=== PATIENT | male | born 1950 | race African-American/Black ===

== ENCOUNTER 2020-08-16 22:59 | Emergency (ER) | payer BC, OTHER, SELFPAY ==
[2020-08-17] MEDS ORDERED: ACETAMINOPHEN 325 MG TABLET ONE (00:31)
[2020-08-17 00:50] LABS: Urine Blood TRACE (NEG); Urine Glucose NEGATIVE (NEG); Urine Protein 1+ (NEG); Urine pH 5.5 (5.0-7.0)
[2020-08-17] MEDS ORDERED: NA CHLORIDE 0.9% 500 ML ONE (01:06)
[2020-08-17 01:12] LABS: Absolute Lymphocytes (CBC) 0.7 K/uL (0.7-4.9); Basophils % 0.4 % (0-1.3); Hematocrit 41.1 % (39.6-49.0); Lymphocytes % 9.2 % (15.3-44.8); MPV 10.7 fL (7.6-11.3); RBC Red Blood Cell Count 5.05 M/uL (4.33-5.43)
[2020-08-17 01:14] LABS: BUN Blood Urea Nitrogen 24 mg/dL (7-18); Bicarbonate 23 mmol/L (21-32); Glucose Level 124 mg/dL (74-106); Potassium 3.9 mmol/L (3.5-5.1); Sodium Level 138 mmol/L (136-145)
[2020-08-17 01:15] LABS: ALT/SGPT 26 U/L (12-78); AST/SGOT 23 U/L (15-37); Albumin 3.6 g/dL (3.4-5.0); Alkaline Phosphatase 93 U/L (45-117); Bilirubin Total 0.4 mg/dL (0.2-1.0); Lipase 127 U/L (73-393); Protein, Total 8.3 g/dL (6.4-8.2); Troponin (Emerg Dept Use Only) < 0.02 ng/mL (0.0-0.045)
--- NOTE | 2020-08-17 01:57 | ER ---
Nurse's Notes [facility] Name: Dax Zimmer Age: 70 yrs Sex: Male : 1950 Arrival Date: 08/16/2020 Time: 22:59 Bed 23 Private MD: Diagnosis: Dyspnea;Acute upper respiratory infection, unspecified;Malaise and fatigue;SARS-associated coronavirus as the cause of diseases classified elsewhere-covid 19 Presentation: 08/17 00:30 Chief complaint: Patient states: Reports shortness of breath, chills x 3 days; unable lp1 to tolerate eating and drinking; denies fever. Coronavirus screen: Client denies travel out of the [place] in the last 14 days. chills. Ebola Screen: No symptoms or risks identified at this time. Initial Sepsis Screen: Does the patient meet any 2 criteria? No. Patient's initial sepsis screen is negative. Does the patient have a suspected source of infection? No. Patient's initial sepsis screen is negative. Risk Assessment: Do you want to hurt yourself or someone else? Patient reports no desire to harm self or others. Onset of symptoms was August 17, 2020. 00:30 Method Of Arrival: Wheelchair lp1 00:30 Acuity: LEILANI 3 lp1 Historical: - Allergies: 00:33 No Known Allergies; lp1 - Home Meds: 00:33 None [Active]; lp1 - PMHx: 00:33 None; lp1 - PSHx: 00:33 None; lp1 - Immunization history:: Adult Immunizations up to date. - Social history:: Smoking status: Patient reports the use of cigarette tobacco products, denies chronic smoking, but will smoke occasionally. - Family history:: not pertinent. Screenin:00 Abuse screen: Denies threats or abuse. Nutritional screening: No deficits noted. ll2 Tuberculosis screening: No symptoms or risk factors identified. Fall Risk None identified. Assessment: 01:20 General: Appears in no apparent distress. Behavior is calm, cooperative, appropriate ll2 for age. Pain: Denies pain. Neuro: Level of Consciousness is alert, obeys commands, Oriented to person, place, time, situation. Cardiovascular: Patient's skin is warm and dry. Rhythm is regular. Respiratory: Airway is patent Respiratory effort is even, Respiratory pattern is regular, symmetrical. GI: No signs and/or symptoms were reported involving the gastrointestinal system. : No signs and/or symptoms were reported regarding the genitourinary system. EENT: No signs and/or symptoms were reported regarding the EENT system. Derm: Skin is intact, is healthy with good turgor, Skin is pink, warm \T\ dry. Musculoskeletal: Circulation, motion, and sensation intact. Range of motion: intact in all extremities. Vital Signs: 00:30 BP 147 / 80; Pulse 79; Resp 18; Temp 98.3(O); Pulse Ox 100% on R/A; Weight 72.57 kg lp1 (R); Height 5 ft. 10 in. (177.80 cm); 01:00 BP 124 / 79; Pulse 60; Resp 17; Temp 98.4; Pulse Ox 98% on R/A; ll2 02:00 BP 123 / 76; Pulse 55; Resp 15; Pulse Ox 98% on R/A; ll2 00:30 Body Mass Index 22.96 (72.57 kg, 177.80 cm) lp1 ED Course: 08/16 22:59 Patient arrived in ED. cl3 08/17 00:24 Sean Talley MD is Attending Physician. chandan 00:32 Triage completed. lp1 00:32 Arm band placed on. lp1 01:21 XRAY Chest (1 view) In Process Unspecified. EDMS 01:55 Nick Benítez MD is Referral Physician. chandan 01:57 James Kelly MD is Referral Physician. chandan 02:31 Zarina De Leon RN is Primary Nurse. ll2 Administered Medications: 00:33 Drug: Tylenol 650 mg Route: PO; lp1 01:40 Follow up: Response: No adverse reaction ll2 00:53 Drug: NS 0.9% 500 ml Route: IV; Rate: bolus; Site: right antecubital; jb4 02:00 Drug: Decadron 10 mg Route: IM; Site: left deltoid; ll2 02:00 Follow up: Response: Medication administered at discharge. ll2 02:00 Drug: Pepcid 20 mg Route: PO; ll2 07:35 Follow up: Response: Medication administered at discharge. ll2 02:00 Drug: Aspirin Chewable Tablet 324 mg Route: PO; ll2 07:35 Follow up: Response: Medication administered at discharge. 2 02:39 Drug: Zithromax 500 mg Route: PO; 2 Outcome: 01:56 Discharge ordered by . chandan 03:01 Patient left the ED. 2 Signatures: Dispatcher [employer] EDSean Cox MD MD cha Pena, Laura, RN RN lp1 Venu To RN RN jb4 Henrietta Perez mw2 Sandy An 3 Zarina De Leon RN RN ll2
--- NOTE | 2020-08-17 01:57 | EDPHYS ---
Physician Documentation [facility] Name: Dax Zimmer Age: 70 yrs Sex: Male : 1950 Arrival Date: 08/16/2020 Time: 22:59 Bed 23 Private MD: ED Physician Sean Talley HPI: 08/17 00:34 This 70 yrs old Black Male presents to ER via Wheelchair with complaints of Shortness chandan Of Breath. 00:34 The patient has shortness of breath at rest, with light activity. Onset: The chandan symptoms/episode began/occurred 2 day(s) ago. Duration: The symptoms are continuous, and are unchanged since they started. The patient's shortness of breath has no apparent modifying factors. Associated signs and symptoms: Pertinent positives: non-productive cough. Severity of symptoms: At their worst the symptoms were mild in the emergency department the symptoms are unchanged. The patient has not experienced similar symptoms in the past. Historical: - Allergies: 00:33 No Known Allergies; lp1 - Home Meds: 00:33 None [Active]; lp1 - PMHx: 00:33 None; lp1 - PSHx: 00:33 None; lp1 - Immunization history:: Adult Immunizations up to date. - Social history:: Smoking status: Patient reports the use of cigarette tobacco products, denies chronic smoking, but will smoke occasionally. - Family history:: not pertinent. ROS: 00:34 Constitutional: Negative for fever, chills, and weight loss, Eyes: Negative for injury, chandan pain, redness, and discharge, ENT: Negative for injury, pain, and discharge, Neck: Negative for injury, pain, and swelling, Cardiovascular: Negative for chest pain, palpitations, and edema, Back: Negative for injury and pain, : Negative for injury, bleeding, discharge, and swelling, MS/Extremity: Negative for injury and deformity, Skin: Negative for injury, rash, and discoloration, Neuro: Negative for headache, weakness, numbness, tingling, and seizure, Psych: Negative for depression, anxiety, suicide ideation, homicidal ideation, and hallucinations, Allergy/Immunology: Negative for hives, rash, and allergies, Endocrine: Negative for neck swelling, polydipsia, polyuria, polyphagia, and marked weight changes, Hematologic/Lymphatic: Negative for swollen nodes, abnormal bleeding, and unusual bruising. 00:34 Respiratory: Positive for cough. 00:34 Abdomen/GI: Positive for abdominal pain, of the epigastric area, right upper quadrant and left upper quadrant. Exam: 00:34 Constitutional: This is a well developed, well nourished patient who is awake, alert, chandan and in no acute distress. Head/Face: Normocephalic, atraumatic. Eyes: Pupils equal round and reactive to light, extra-ocular motions intact. Lids and lashes normal. Conjunctiva and sclera are non-icteric and not injected. Cornea within normal limits. Periorbital areas with no swelling, redness, or edema. ENT: Nares patent. No nasal discharge, no septal abnormalities noted. Tympanic membranes are normal and external auditory canals are clear. Oropharynx with no redness, swelling, or masses, exudates, or evidence of obstruction, uvula midline. Mucous membranes moist. Neck: Trachea midline, no thyromegaly or masses palpated, and no cervical lymphadenopathy. Supple, full range of motion without nuchal rigidity, or vertebral point tenderness. No Meningismus. Chest/axilla: Normal chest wall appearance and motion. Nontender with no deformity. No lesions are appreciated. Cardiovascular: Regular rate and rhythm with a normal S1 and S2. No gallops, murmurs, or rubs. Normal PMI, no JVD. No pulse deficits. Respiratory: Lungs have equal breath sounds bilaterally, clear to auscultation and percussion. No rales, rhonchi or wheezes noted. No increased work of breathing, no retractions or nasal flaring. Abdomen/GI: Soft, non-tender, with normal bowel sounds. No distension or tympany. No guarding or rebound. No evidence of tenderness throughout. Back: No spinal tenderness. No costovertebral tenderness. Full range of motion. Male : Normal genitalia with no discharge or lesions. Skin: Warm, dry with normal turgor. Normal color with no rashes, no lesions, and no evidence of cellulitis. MS/ Extremity: Pulses equal, no cyanosis. Neurovascular intact. Full, normal range of motion. Neuro: Awake and alert, GCS 15, oriented to person, place, time, and situation. Cranial nerves II-XII grossly intact. Motor strength 5/5 in all extremities. Sensory grossly intact. Cerebellar exam normal. Normal gait. Psych: Awake, alert, with orientation to person, place and time. Behavior, mood, and affect are within normal limits. 01:04 ECG was reviewed by the Attending Physician. chandan 01:54 Cardiovascular: JVD: is not appreciated. chandan 01:54 Respiratory: the patient does not display signs of respiratory distress, Respirations: normal, no acute changes, Breath sounds: are clear throughout, no bronchial sounds, no decreased breath sounds, no rales, no stridor, no wheezing, rhonchi, that are mild, are scattered, Respiratory rate: 18 01:54 Musculoskeletal/extremity: Extremities: all appear grossly normal, with no appreciated pain with palpation, no edema. Vital Signs: 00:30 BP 147 / 80; Pulse 79; Resp 18; Temp 98.3(O); Pulse Ox 100% on R/A; Weight 72.57 kg lp1 (R); Height 5 ft. 10 in. (177.80 cm); 01:00 BP 124 / 79; Pulse 60; Resp 17; Temp 98.4; Pulse Ox 98% on R/A; ll2 02:00 BP 123 / 76; Pulse 55; Resp 15; Pulse Ox 98% on R/A; ll2 00:30 Body Mass Index 22.96 (72.57 kg, 177.80 cm) lp1 MDM: 00:25 Patient medically screened. chandan 00:35 Differential diagnosis: asthma, Bronchitis pneumonia, pulmonary edema, reactive airway chandan disease. Antibiotic administration: Not indicated. The patient's [place] Deep Vein Thrombosis Score was calculated as follows: Total Score: 0-2 Pts- Low Risk. The patient's pulmonary embolism risk score was calculated as follows: No Risks (0 Pts). Immunization status: Pneumococcal vaccine: Influenza vaccine: Data reviewed: vital signs, nurses notes, lab test result(s), EKG, radiologic studies, plain films. Data interpreted: site monitor: rate is 79 beats/min, rhythm is regular, Pulse oximetry: on room air. Test interpretation: by ED physician or midlevel provider: ECG, plain radiologic studies. Counseling: I had a detailed discussion with the patient and/or guardian regarding: the historical points, exam findings, and any diagnostic results supporting the discharge/admit diagnosis, lab results, radiology results. 08/17 00:33 Order name: CBC with Diff; Complete Time: 01:20 chandan 08/17 00:33 Order name: Comprehensive Metabolic Panel; Complete Time: 01:20 chandan 08/17 00:33 Order name: Lipase; Complete Time: 01:20 chandan 08/17 00:06 Order name: XRAY Chest (1 view) lp1 08/17 00:34 Order name: Troponin (emerg Dept Use Only); Complete Time: 01:20 chandan 08/17 00:44 Order name: Urine Dipstick--Ancillary (enter results); Complete Time: 01:08 2 08/17 02:40 Order name: COVID-19/FLU A+B EDMS 08/17 00:06 Order name: Urine Dipstick-Ancillary (obtain specimen); Complete Time: 01:48 lp1 08/17 00:34 Order name: EKG; Complete Time: 00:34 chandan 08/17 00:34 Order name: EKG - Nurse/Tech; Complete Time: 01:49 [facility] EC:04 Rate is 62 beats/min. Rhythm is regular. QRS Gering is Normal. IN interval is normal. QRS chandan interval is normal. QT interval is normal. No Q waves. T waves are Normal. No ST changes noted. Clinical impression: Normal ECG and No evidence of ischemia. Interpreted by me. Reviewed by me. Administered Medications: 00:33 Drug: Tylenol 650 mg Route: PO; lp1 01:40 Follow up: Response: No adverse reaction ll2 00:53 Drug: NS 0.9% 500 ml Route: IV; Rate: bolus; Site: right antecubital; jb4 02:00 Drug: Decadron 10 mg Route: IM; Site: left deltoid; ll2 02:00 Follow up: Response: Medication administered at discharge. ll2 02:00 Drug: Pepcid 20 mg Route: PO; ll2 07:35 Follow up: Response: Medication administered at discharge. ll2 02:00 Drug: Aspirin Chewable Tablet 324 mg Route: PO; ll2 07:35 Follow up: Response: Medication administered at discharge. ll2 02:39 Drug: Zithromax 500 mg Route: PO; ll2 Disposition: 08/17/20 01:56 Discharged to Home. Impression: Dyspnea, Acute upper respiratory infection, unspecified, Malaise and fatigue, SARS-associated coronavirus as the cause of diseases classified elsewhere - covid 19. - Condition is Stable. - Discharge Instructions: Shortness of Breath, Upper Respiratory Infection, Adult, Weakness, Cool Mist Vaporizer, Shortness of Breath, Utav-sn-Whgm, Upper Respiratory Infection, Adult, Zzud-bx-Opph, Cough, Adult, Bcih-vh-Eqhz, Weakness, Iafr-zh-Qpfk, Aspirin and Your Heart, Cough, Adult, COVID-19. - Prescriptions for Pepcid 20 mg Oral Tablet - take 1 tablet by ORAL route every 12 hours for 10 days; 20 tablet. Albuterol Sulfate 90 mcg/actuation - inhale 1-2 puff by INHALATION route every 4-6 hours; 1 Inhaler. dexamethasone 2 mg Oral tablet - take 1 tablet by ORAL route 3 times per day; 15 tablet. Zithromax 500 mg Oral Tablet - take 1 tablet by ORAL route once daily for 4 days; 4 tablet. - Medication Reconciliation Form, Thank You Letter, Antibiotic Education, Prescription Opioid Use form. - Follow up: Private Physician; When: 2 - 3 days; Reason: Recheck today's complaints, Continuance of care, Re-evaluation by your physician. Follow up: Nick Benítez MD; When: 2 - 3 days; Reason: Recheck today's complaints, Continuance of care, Re-evaluation by your physician. Follow up: James Kelly MD; When: 2 - 3 days; Reason: Recheck today's complaints, Re-evaluation by your physician. - Problem is new. - Symptoms have improved. Signatures: Dispatcher [employer] [facility] Sean Talley MD MD cha Pena, Laura, RN RN lp1 Venu To RN RN jb4 Henrietta Perez mw2 Zarina De Leon, DANIELLE RN ll2 Corrections: (The following items were deleted from the chart) 01:34 00:15 Influenza Screen (A \T\ B)+[id number].LAB.BRZ ordered. [facility] EDWA 01:34 00:15 Influenza Screen (A ordered. [facility] EDWA 01:57 01:56 08/17/2020 01:56 Discharged to Home. Impression: Dyspnea; Acute upper respiratory chandan infection, unspecified; Malaise and fatigue. Condition is Stable. Forms are Medication Reconciliation Form, Thank You Letter, Antibiotic Education, Prescription Opioid Use. Follow up: Private Physician; When: 2 - 3 days; Reason: Recheck today's complaints, Continuance of care, Re-evaluation by your physician. Follow up: Nick Benítez; When: 2 - 3 days; Reason: Recheck today's complaints, Continuance of care, Re-evaluation by your physician. Problem is new. Symptoms have improved. chandan 02:44 01:57 08/17/2020 01:56 Discharged to Home. Impression: Dyspnea; Acute upper respiratory chandan infection, unspecified; Malaise and fatigue. Condition is Stable. Discharge Instructions: Shortness of Breath, Upper Respiratory Infection, Adult, Weakness, Cool Mist Vaporizer, Shortness of Breath, Dtsg-gg-Rtgh, Upper Respiratory Infection, Adult, Gkce-xr-Zdzq, Cough, Adult, Mtej-ky-Xqjm, Weakness, Texx-zm-Hlza, Cough, Adult. Prescriptions for Pepcid 20 mg Oral Tablet - take 1 tablet by ORAL route every 12 hours for 10 days; 20 tablet, Zithromax Z-Leroy 250 mg Oral Tablet - take 1 tablet by ORAL route as directed for 5 days Day 1 - take two (2) tablets one time. Day 2, 3, 4 , 5 take one (1) tablet once daily.; 6 tablet, Albuterol Sulfate 90 mcg/actuation - inhale 1-2 puff by INHALATION route every 4-6 hours; 1 Inhaler. and Forms are Medication Reconciliation Form, Thank You Letter, Antibiotic Education, Prescription Opioid Use. Follow up: Private Physician; When: 2 - 3 days; Reason: Recheck today's complaints, Continuance of care, Re-evaluation by your physician. Follow up: Nick Benítez; When: 2 - 3 days; Reason: Recheck today's complaints, Continuance of care, Re-evaluation by your physician. Follow up: James Kelly; When: 2 - 3 days; Reason: Recheck today's complaints, Re-evaluation by your physician. Problem is new. Symptoms have improved. chandan 03:01 02:44 08/17/2020 01:56 Discharged to Home. Impression: Dyspnea; Acute upper respiratory mw2 infection, unspecified; Malaise and fatigue; SARS-associated coronavirus as the cause of diseases classified elsewhere - covid 19. Condition is Stable. Discharge Instructions: Shortness of Breath, Upper Respiratory Infection, Adult, Weakness, Cool Mist Vaporizer, Shortness of Breath, Eair-ln-Tjeo, Upper Respiratory Infection, Adult, Oayt-pv-Oznh, Cough, Adult, Eifh-xe-Asgz, Weakness, Bohr-jt-Swpg, Cough, Adult, COVID-19. Prescriptions for Pepcid 20 mg Oral Tablet - take 1 tablet by ORAL route every 12 hours for 10 days; 20 tablet, Albuterol Sulfate 90 mcg/actuation - inhale 1-2 puff by INHALATION route every 4-6 hours; 1 Inhaler, dexamethasone 2 mg Oral tablet - take 1 tablet by ORAL route 3 times per day; 15 tablet, Zithromax 500 mg Oral Tablet - take 1 tablet by ORAL route once daily for 4 days; 4 tablet. and Forms are Medication Reconciliation Form, Thank You Letter, Antibiotic Education, Prescription Opioid Use. Follow up: Private Physician; When: 2 - 3 days; Reason: Recheck today's complaints, Continuance of care, Re-evaluation by your physician. Follow up: Nick Benítez; When: 2 - 3 days; Reason: Recheck today's complaints, Continuance of care, Re-evaluation by your physician. Follow up: James Kelly; When: 2 - 3 days; Reason: Recheck today's complaints, Re-evaluation by your physician. Problem is new. Symptoms have improved. chandan
[2020-08-17 02:40] LABS: SARS-COV-2 RT PCR POSITIVE (NEGATIVE)
[2020-08-17] MEDS ORDERED: AZITHROMYCIN 250 MG TAB ONE (02:49)
[2020-08-17 03:06] VITALS: BP 147/80; TEMP 98.3; O2SAT 100
[2020-08-17] MEDS ORDERED: FAMOTIDINE 20 MG TAB ONE (03:10)
[2020-08-17] MEDS ORDERED: ASPIRIN 81 MG CHEWABLE TABLET ONE (03:10)
[2020-08-17] MEDS ORDERED: dexAMETHasone 10 MG/ML VIAL ONE (03:10)
--- NOTE | 2020-08-17 08:44 | RAD REPORT ---
EXAM DESCRIPTION: Jennie Single View08/17/2020 1:21 am CLINICAL HISTORY: Shortness of breath COMPARISON: 2013 FINDINGS: Bilateral calcified lung granulomas Heart is borderline enlarged. Lungs mildly hyperaerated IMPRESSION: No acute abnormalities displayed
--- NOTE | 2020-08-18 08:20 | EKG ---
Test Date: 2020-08-17 Test Time: 00:59:45 Elevated Motorman: MARIELA MEASUREMENT RESULTS: Intervals: Rate: 62 VT: 176 QRSD: 104 QT: 396 QTc: 401 Barton: P: 67 VT: 176 QRS: 30 T: 59 INTERPRETIVE STATEMENTS: Sinus rhythm with premature atrial complexes Otherwise normal ECG Compared to ECG 04/05/2014 07:45:56 Atrial premature complex(es) now present Electronically Signed On 08-18-20 08:17:52 JIG FITTER by James Kelly
== END 2020-08-17 03:01 | disposition home or self-care (01) ==
LOC: ER 22:59
DX: U07.1 COVID-19 (principal); J98.8 Other specified respiratory disorders; F17.210 Nicotine dependence, cigarettes, uncomplicated
CPT/HCPCS: 93005; 85025; 36415; 81003; 84484; 83690; 80053; 0240U; 71045; 96372; 99283; J1100; J7040

== ENCOUNTER 2024-03-26 19:52 | Inpatient (IN) | payer OTHER ==
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
[2024-03-26] MEDS ORDERED: ONDANSETRON 4 MG/2 ML VIAL ONE (20:24)
[2024-03-26] MEDS ORDERED: MORPHINE 4 MG/ML SYR ONE (20:25)
[2024-03-26 20:35] LABS: Absolute Basophils 0.1 K/uL (0-0.5); Absolute Eosinophils 0.1 K/uL (0-0.5); Absolute Monocytes 0.8 K/uL (0.1-1.3); Absolute Neutrophil 6.5 K/uL (1.8-8.0); Basophils % 0.7 % (0-1.3); Eosinophils % 1.6 % (0-4.4); Hemoglobin 13.6 g/dL (13.6-17.9); Lymphocytes % 20.6 % (15.3-44.8); MCHC 33.9 g/dL (32.0-36.0); MCV 82.6 fL (80-100); MPV 8.5 fL (7.6-11.3); Monocytes % 8.5 % (3.3-12.3); Neutrophils % 68.6 % (41.7-73.7); Nucleated Red Blood Cells % 0.1 % (0-0); Platelets 258 thou/uL (152-406); RBC Red Blood Cell Count 4.84 M/uL (4.33-5.43); Red Cell Distribution Width 15.2 % (12.1-15.2)
[2024-03-26 20:42] LABS: PT Prothrombin Time 13.4 SECONDS (9.4-12.5); PTT, Activated Partial Thromb 27.4 SECONDS (24.3-36.9); Protime INR 1.2
[2024-03-26] MEDS ORDERED: dilTIAZem HCL 25 MG/5 ML VIAL IV ONE ×2 (20:45→23:01)
[2024-03-26 20:56] LABS: Anion Gap 11.9 mEq/L (5.0-15.0); Potassium 3.9 mEq/L (3.5-5.1)
[2024-03-26 21:18] LABS: Troponin High Sensitivity 2655.1 pg/mL (<58.9)
--- NOTE | 2024-03-26 21:53 | RAD REPORT ---
EXAM DESCRIPTION: Jennie Single View03/26/2024 8:37 pm CLINICAL HISTORY: Chest pain COMPARISON: 2020 FINDINGS: 5 centimeter opacity right upper lobe Left lung appears clear Heart is mildly to moderately enlarged IMPRESSION: Right upper lobe opacity may represent pneumonia or mass
[2024-03-26] MEDS ORDERED: ASPIRIN 81 MG CHEWABLE TABLET ONE ×2 (22:07→22:24)
[2024-03-26] MEDS ORDERED: HEPARIN/D5W 25,000 UNIT/500 ML BAG IV ONE (22:25)
[2024-03-26] MEDS ORDERED: NA CHLORIDE 0.9% 100 ML ONE (23:01)
[2024-03-27] MEDS ORDERED: NA CHLORIDE 0.9% 1,000 ML ONE (00:54)
--- NOTE | 2024-03-27 03:07 | EDPHYS ---
Physician Documentation [facility] Name: Dax Zimmer Age: 73 yrs Sex: Male : 1950 Arrival Date: 03/26/2024 Time: 19:52 Bed 3 Private MD: ED Physician Moiz Traylor HPI: 03/26 20:10 This 73 yrs old Black Male presents to ER via Wheelchair with complaints of Chest Pain. ec2 20:10 Patient arrives today for evaluation with several days of left-sided chest pain. Pain ec2 is nonexertional. No specific alleviating or exacerbating factors. Denies any shortness of breath. Patient reports no leg swelling. No history of cardiac disease, ACS, not on blood thinners.. Historical: - Allergies: 20:08 No Known Allergies; cm10 - PMHx: 20:08 None; cm10 - Immunization history:: Adult Immunizations up to date. - Infectious Disease History:: Denies. - Social history:: Smoking status: unknown. ROS: 20:10 Constitutional: as per hpi ec2 Exam: 20:10 Constitutional: GEN: NAD Head: atraumatic Eyes: EOMI Ears: External ears are ec2 normal. CV: regular rate LUNGS: no respiratory distress ABD: non-distended SKIN: no evidence of rashes MSK: no evidence of trauma Vital Signs: 20:06 BP 176 / 90; Pulse 75; Resp 19; Temp 97.1(IR); Pulse Ox 99% ; Weight 68.04 kg; Height 5 cm10 ft. 10 in. ; Pain 5/10; 20:34 BP 178 / 86; Pulse 98; Resp 18; Temp 97.1; Pulse Ox 97% ; Pain 6/10; bm8 21:36 BP 145 / 80; Pulse 95; Resp 22; Temp 97.1; Pulse Ox 95% ; Pain 0/10; bm8 22:39 Weight 70 kg (M); bm8 23:12 BP 114 / 78; Pulse 113; ec2 23:14 BP 114 / 78; Pulse 70; Resp 16; Temp 97.1; Pulse Ox 95% ; Pain 0/10; bm8 03/27 00:03 BP 115 / 86; Pulse 69; Resp 18; Temp 97.1; Pulse Ox 98% on R/A; Pain 0/10; bm8 01:07 BP 128 / 87; Pulse 66; Resp 17; Temp 97.2; Pulse Ox 95% ; Pain 0/10; bm8 01:57 BP 100 / 7; Pulse 45; Resp 16; Temp 97.1; Pulse Ox 96% ; Pain 0/10; bm8 02:02 BP 120 / 68; Pulse 59; ec2 04:10 BP 133 / 75; Pulse 62; Resp 15; Temp 97.1; Pulse Ox 95% on R/A; Pain 0/10; bm8 03/26 20:06 Body Mass Index 21.52 (70.00 kg, 177.8 cm) cm10 03/26 20:06 Pain Scale: Adult cm10 20:34 Pain Scale: Adult bm8 21:36 Pain Scale: Adult bm8 23:14 Pain Scale: Adult bm8 03/27 00:03 Pain Scale: Adult bm8 01:07 Pain Scale: Adult bm8 01:57 Pain Scale: Adult bm8 04:10 Pain Scale: Adult bm8 [place] Coma Score: 03/26 20:34 Eye Response: spontaneous(4). Motor Response: obeys commands(6). Verbal Response: bm8 oriented(5). Total: 15. 21:36 Eye Response: spontaneous(4). Motor Response: obeys commands(6). Verbal Response: bm8 oriented(5). Total: 15. 23:14 Eye Response: spontaneous(4). Motor Response: obeys commands(6). Verbal Response: bm8 oriented(5). Total: 15. 03/27 00:03 Eye Response: spontaneous(4). Motor Response: obeys commands(6). Verbal Response: bm8 oriented(5). Total: 15. 01:07 Eye Response: spontaneous(4). Motor Response: obeys commands(6). Verbal Response: bm8 oriented(5). Total: 15. 01:57 Eye Response: spontaneous(4). Motor Response: obeys commands(6). Verbal Response: bm8 oriented(5). Total: 15. 04:10 Eye Response: spontaneous(4). Motor Response: obeys commands(6). Verbal Response: bm8 oriented(5). Total: 15. MDM: 03/26 20:05 Patient medically screened. ec2 20:10 Data reviewed: vital signs. ED course: Arrives today for evaluation of chest pain. ec2 Examination remarkable for well-appearing nontoxic dividual's otherwise in no acute distress with a reassuring examination. I obtained an EKG independently reviewed and interpreted by me, shows atrial flutter, rate of 105, no acute ST segment elevations, intervals are nonconcerning. Will obtain lab work, chest x-ray and treat the patient's pain with morphine. Differential includes arrhythmia, ACS, electrolyte disturbances, anemia.. 22:06 ED course: Metabolic profile is reassuring, slight renal dysfunction noted. INR 1.2. ec2 Troponin elevated at 2600. Will give the patient full dose aspirin, start the patient on heparin. Chest x-ray shows possible mass , will obtain dedicated CT chest . 22:45 ED course: Patient with improvement in tachycardia after initial bolus of diltiazem, ec2 patient with recurrence of RVR with rates in the 1 30-1 40, will bolus at 25 mg diltiazem and started on diltiazem drip.. 03/27 00:01 ED course: Repeat EKG independently reviewed and interpreted by me, shows atrial ec2 flutter, rate of 71, conduction block of 41. No acute ST segment elevations, intervals are nonactionable. . 00:17 ED course: CT of the chest shows a spiculated mass on the right lung apex concerning ec2 for malignancy. I updated the patient regarding this finding. Also shows lymphadenopathy. Also concern for splenic infarct. Will obtain dedicated CT abdomen pelvis imaging. . 01:56 ED course: Patient noted to be bradycardic, subsequently stopped the diltiazem drip, ec2 repeat EKG obtained, independently reviewed and interpreted by me, shows normal sinus rhythm, rate of 35, no acute ST segment elevations, nonconcerning intervals, patient with stable blood pressures at this time. Will continue to monitor and discontinue the diltiazem at this time. Pending CT angio of the abdomen and pelvis . 03:05 ED course: I discussed case with Dr. GAMAL Penn, surgery who agrees to help consult and ec2 manage the patient. I discussed case with hospitalist will admit primarily. Patient admitting diagnosis of NSTEMI, atrial flutter which is since resolved, on a heparin GTT. Patient and family updated on the plan of care.. 03/26 20:10 Order name: Basic Metabolic Panel; Complete Time: 22:04 2 03/26 20:10 Order name: CBC with Diff; Complete Time: 22:04 2 03/26 20:10 Order name: PT-INR; Complete Time: 22:04 2 03/26 20:10 Order name: Troponin HS; Complete Time: 22:04 2 03/26 20:10 Order name: Ptt, Activated; Complete Time: 22:04 2 03/27 03:30 Order name: PT-INR ec2 03/27 03:30 Order name: Ptt, Activated ec2 03/27 03:43 Order name: Comprehensive Metabolic Panel [facility] 03/27 03:43 Order name: Magnesium [facility] 03/27 03:43 Order name: NT PRO-BNP [facility] 03/27 03:43 Order name: Troponin High Sensitivity [facility] 03/27 03:43 Order name: Lipid Profile [facility] 03/27 03:43 Order name: Lipid Profile [facility] 03/27 03:44 Order name: Magnesium [facility] 03/27 03:44 Order name: Thyroid Stimulating Hormone [facility] 03/26 20:10 Order name: XRAY Chest (1 view); Complete Time: 22:04 2 03/26 22:06 Order name: CT Chest W/ Con 2 03/27 00:24 Order name: CT Abdomen - Angio [facility] 03/27 00:24 Order name: CT Pelvis Angio 2 03/27 03:43 Order name: Echo with Doppler [facility] 03/26 20:10 Order name: EKG; Complete Time: 20:10 2 03/27 03:43 Order name: CONS Physician Consult [facility] 03/27 03:43 Order name: CONS Physician Consult [facility] 03/26 20:10 Order name: Cardiac monitoring; Complete Time: 20:22 2 03/26 20:10 Order name: EKG - Nurse/Tech; Complete Time: 20:11 2 03/26 20:10 Order name: IV Saline Lock; Complete Time: 20:22 2 03/26 20:10 Order name: Labs collected and sent; Complete Time: 20:22 2 03/26 20:10 Order name: O2 Per Protocol; Complete Time: 20:22 2 03/26 20:10 Order name: O2 Sat Monitoring; Complete Time: 20:22 ec2 03/26 23:53 Order name: Ashleyc. Order: repeat ekg; Complete Time: 00:36 ec2 03/26 23:53 Order name: EKG - Nurse/Tech; Complete Time: 00:36 ec2 Administered Medications: 03/26 20:34 Drug: morphine IVP or IV 4 mg IVP once over 4 mins Route: IVP; Infused Over: 4 mins; bm8 Site: left forearm; 21:38 Follow up: Response: No adverse reaction bm8 20:34 Drug: Ondansetron IVP 4 mg IVP once; over 2 minutes Route: IVP; Site: left forearm; bm8 21:38 Follow up: Response: No adverse reaction bm8 20:47 Drug: Diltiazem IVP 10 mg IVP once; Over 2 minutes Route: IVP; Site: left forearm; bm8 21:38 Follow up: Response: No adverse reaction bm8 22:25 Drug: Aspirin PO Chewable Tablet 324 mg PO once; 81 mg tablets x 4 Route: PO; jb4 23:55 Follow up: Response: No adverse reaction bm8 22:58 Drug: Heparin ([place] Drip) 12 units/kg/[place] - ([place] [address] units, D5W IV 500 ml) IV at bm8 calculated rate Per protocol; Max initial rate 1000 units/hr {Co-Signature: jbElla (Venu To RN).} Route: IV; Rate: calculated rate; Site: left forearm; 03/27 04:12 Follow up: Response: No adverse reaction; IV Status: Infusion continued upon admission bm8 04:23 Follow up: ptt 35.5 medication increased 100 units /hr per heparin protocol 8 03/26 23:11 Drug: Diltiazem IV 5 mg/hr IV at calculated rate See Administration Instructions; bm8 (standard dilution 125 mg diltiazem mixed in 125 mL NS; final concentration 1mg/mL). Recommended max rate 15 mg/hr; Titrate 5 mg/hr as often as every 15 minutes to acheive goal (see titration policy); Goal parameter HR less than 100 bpm Route: IV; Rate: calculated rate; Site: right forearm; 23:30 Follow up: titrated med up to 7.5mg, HR goal not reached bm8 23:46 Follow up: medication titrated up to 10 mg/hr, HR goal not reached bm8 23:52 Follow up: HR 140. tittated medication up to 12.5mg/hr. goal not reached bm8 03/27 02:00 Follow up: per MD orders diltiazem stopped. pt converted to sinus aydin bm8 02:01 Follow up: Response: Cardiac rhythm changed; IV Status: Order to discontinue infusion; bm8 IV Intake: 50ml 03/26 23:11 Drug: Diltiazem IVP 25 mg IVP once; Over 2 minutes Route: IVP; Site: right forearm; bm8 03/27 01:06 Follow up: Response: No adverse reaction bm8 01:06 Drug: NS 0.9% IV 1000 ml IV at 1 bolus Per protocol; 1000 mL bolus Route: IV; Rate: 1 bm8 bolus; Site: right forearm; 02:00 Follow up: IV Status: Completed infusion; IV Intake: 1000ml bm8 02:00 Follow up: Response: No adverse reaction bm8 Disposition: 03/26 22:36 Critical Care:. ec2 Disposition Summary: 03/27/24 03:06 Hospitalization Ordered Notes: Hospitalization Status: Inpatient Admission ec2 Provider: Maliha Mckeon ec2 Condition: Stable ec2 Problem: new ec2 Symptoms: have improved ec2 Bed/Room Type: Standard ec2 Location: Intensive Care Unit(03/27/24 04:00) Room Assignment: 4-(03/27/24 04:00) Diagnosis - Unspecified atrial flutter ec2 - [place] Infarct ec2 Forms: - Medication Reconciliation Form ec2 - SBAR form ec2 - Leadership Thank You Letter ec2 Critical care time excluding procedures: 03/27 03:05 Critical care time: Bedside Care: 70 minutes, Consultation: 15 minutes. Total time: 85 ec2 minutes Signatures: Dispatcher [employer] EDKatlin Mantilla RN RN kl Bryson, James RN RN jb4 Rosenda Connelly RN RN cm10 Moiz Traylor MD MD ec2 Bao Kraus RN RN bm8 Venu To RN jb4 Corrections: (The following items were deleted from the chart) 00:24 00:24 Abdomen Angio+CT.RAD.BRZ ordered. EDAR EDMS 00:24 00:24 Pelvis Angio+CT.RAD.BRZ ordered. EDAR EDMS 00:26 09/09 22:36 Critical care time: Bedside Care: 30 minutes, Consultation: 5 minutes. ec2 Total time: 35 minutes ec2 03/27 00:27 00:07 Abdomen Pelvis Wo Con+CT.RAD.BRZ ordered. EDMS EDMS 02:03 02:02 BP 100 / 76; Pulse 59bpm; ec2 ec2 03:06 00:26 Critical care time: Bedside Care: 70 minutes, Consultation: 5 minutes. Total ec2 time: 75 minutes ec2 04:00 03:06 Telemetry/MedSurg (Inpatient) ec2 kl 04:00 03:06 ec2 kl
--- NOTE | 2024-03-27 03:07 | ER ---
Nurse's Notes [facility] Name: Dax Zimmer Age: 73 yrs Sex: Male : 1950 Arrival Date: 03/26/2024 Time: 19:52 Bed 3 Private MD: Diagnosis: Unspecified atrial flutter;Splenic Infarct Presentation: 03/26 20:06 Chief complaint: Patient states: Chest pain to the center of his chest onset a few days cm10 ago. Chest pain is worse when laying flat. Coronavirus screen: Client denies travel out of the [place] in the last 14 days. Ebola Screen: Patient denies travel to an Ebola-affected area in the 21 days before illness onset. No symptoms or risks identified at this time. Initial Sepsis Screen: Does the patient meet any 2 criteria? No. Patient's initial sepsis screen is negative. Does the patient have a suspected source of infection? No. Patient's initial sepsis screen is negative. Risk Assessment: Do you want to hurt yourself or someone else? Patient reports no desire to harm self or others. Onset of symptoms was March 26, 2024. 20:06 Method Of Arrival: Wheelchair cm10 20:06 Acuity: LEILANI 2 cm10 Historical: - Allergies: 20:08 No Known Allergies; cm10 - PMHx: 20:08 None; cm10 - Immunization history:: Adult Immunizations up to date. - Infectious Disease History:: Denies. - Social history:: Smoking status: unknown. Screenin:34 [facility] ED Fall Risk Assessment (Adult) History of falling in the last 3 months, bm8 including since admission No falls in past 3 months (0 pts) Confusion or Disorientation No (0 pts) Intoxicated or Sedated No (0 pts) Impaired Gait No (0 pts) Mobility Assist Device Used No (0 pt) Altered Elimination No (0 pt) Score/Fall Risk Level 0 - 2 = Low Risk Oriented to surroundings, Maintained a safe environment, Educated pt \T\ family on fall prevention, incl call for assistance when getting out of bed, Assessed \T\ reinforced patient's understanding of fall precautions, Hourly rounding (assess needs \T\ fall precautionary measures) done, Used ambulatory aids as needed (educated on \T\ assisted with), Used gait belt as appropriate. Abuse screen: Denies threats or abuse. Nutritional screening: No deficits noted. Tuberculosis screening: No symptoms or risk factors identified. Assessment: 20:34 Reassessment: Patient appears in no apparent distress at this time. Patient and/or bm8 family updated on plan of care and expected duration. Pain level reassessed. Patient is alert, oriented x 3, equal unlabored respirations, skin warm/dry/pink. General: Appears in no apparent distress. uncomfortable, Behavior is calm, cooperative, appropriate for age. Pain: Complains of pain in chest Pain does not radiate. Pain currently is 6 out of 10 on a pain scale. Quality of pain is described as aching, crampy, pressure, Pain began 1 day ago. Is continuous. Neuro: No deficits noted. Level of Consciousness is awake, alert, obeys commands, Oriented to person, place, time, situation, Appropriate for age. Cardiovascular: Reports chest pain, lightheadedness, Heart tones S1 S2 present Capillary refill < 3 seconds Patient's skin is warm and dry. Rhythm is atrial flutter 3:1. Respiratory: Airway is patent Respiratory effort is even, unlabored, Respiratory pattern is regular, symmetrical, Breath sounds are clear bilaterally. GI: No signs and/or symptoms were reported involving the gastrointestinal system. : No signs and/or symptoms were reported regarding the genitourinary system. EENT: No signs and/or symptoms were reported regarding the EENT system. Derm: No signs and/or symptoms reported regarding the dermatologic system. Musculoskeletal: No signs and/or symptoms reported regarding the musculoskeletal system. 21:36 Reassessment: Patient appears in no apparent distress at this time. Patient and/or bm8 family updated on plan of care and expected duration. Pain level reassessed. Patient is alert, oriented x 3, equal unlabored respirations, skin warm/dry/pink. Patient denies pain at this time. Patient states feeling better. Patient states symptoms have improved. Cardiovascular: Denies chest pain, lightheadedness, shortness of breath, Heart tones S1 S2 present Capillary refill < 3 seconds Patient's skin is warm and dry. Rhythm is atrial flutter 3:1. 23:14 Reassessment: Patient appears in no apparent distress at this time. Patient and/or bm8 family updated on plan of care and expected duration. Pain level reassessed. Patient is alert, oriented x 3, equal unlabored respirations, skin warm/dry/pink. Patient denies pain at this time. Cardiovascular: Capillary refill < 3 seconds in bilateral fingers toes Patient's skin is warm and dry. Rhythm is atrial flutter 3:1. Cardiovascular: Denies chest pain, lightheadedness, shortness of breath. Respiratory: Airway is patent Respiratory effort is even, unlabored, Respiratory pattern is regular, symmetrical, Breath sounds are clear bilaterally. GI: No signs and/or symptoms were reported involving the gastrointestinal system. : No signs and/or symptoms were reported regarding the genitourinary system. EENT: No signs and/or symptoms were reported regarding the EENT system. Derm: No signs and/or symptoms reported regarding the dermatologic system. Musculoskeletal: No signs and/or symptoms reported regarding the musculoskeletal system. 03/27 00:03 Reassessment: No changes from previously documented assessment. Patient and/or family bm8 updated on plan of care and expected duration. Pain level reassessed. Patient is alert, oriented x 3, equal unlabored respirations, skin warm/dry/pink. Patient denies pain at this time. Patient states feeling better. Patient states symptoms have improved. 01:07 Reassessment: Patient appears in no apparent distress at this time. No changes from bm8 previously documented assessment. Patient and/or family updated on plan of care and expected duration. Pain level reassessed. Patient is alert, oriented x 3, equal unlabored respirations, skin warm/dry/pink. pt is resting with eyes closed breathing is even unlabored at this time. denies pain. at bedside. warm blankets provided to both pt and spouse Patient denies pain at this time. 01:57 Reassessment: pt's hear rate was witnessed being in low sinus aydin. Pt was checked for bm8 alertness and immedieatly responded denying pain. provider aware new orders received and carried out. pt denies pain. Cardiovascular: Capillary refill < 3 seconds in bilateral fingers toes Rhythm is sinus bradycardia. 04:10 Reassessment: Patient appears in no apparent distress at this time. Patient and/or bm8 family updated on plan of care and expected duration. Pain level reassessed. Patient is alert, oriented x 3, equal unlabored respirations, skin warm/dry/pink. Cardiovascular: Denies chest pain, lightheadedness, shortness of breath, Heart tones S1 S2 present Capillary refill < 3 seconds in bilateral fingers toes Patient's skin is warm and dry. Rhythm is sinus rhythm. Respiratory: Airway is patent Respiratory effort is even, unlabored, Respiratory pattern is regular, symmetrical. Vital Signs: 03/26 20:06 BP 176 / 90; Pulse 75; Resp 19; Temp 97.1(IR); Pulse Ox 99% ; Weight 68.04 kg; Height 5 cm10 ft. 10 in. ; Pain 5/10; 20:34 BP 178 / 86; Pulse 98; Resp 18; Temp 97.1; Pulse Ox 97% ; Pain 6/10; bm8 21:36 BP 145 / 80; Pulse 95; Resp 22; Temp 97.1; Pulse Ox 95% ; Pain 0/10; bm8 22:39 Weight 70 kg (M); bm8 23:12 BP 114 / 78; Pulse 113; ec2 23:14 BP 114 / 78; Pulse 70; Resp 16; Temp 97.1; Pulse Ox 95% ; Pain 0/10; bm8 03/27 00:03 BP 115 / 86; Pulse 69; Resp 18; Temp 97.1; Pulse Ox 98% on R/A; Pain 0/10; bm8 01:07 BP 128 / 87; Pulse 66; Resp 17; Temp 97.2; Pulse Ox 95% ; Pain 0/10; bm8 01:57 BP 100 / 7; Pulse 45; Resp 16; Temp 97.1; Pulse Ox 96% ; Pain 0/10; bm8 02:02 BP 120 / 68; Pulse 59; ec2 04:10 BP 133 / 75; Pulse 62; Resp 15; Temp 97.1; Pulse Ox 95% on R/A; Pain 0/10; bm8 03/26 20:06 Body Mass Index 21.52 (70.00 kg, 177.8 cm) cm10 03/26 20:06 Pain Scale: Adult cm10 20:34 Pain Scale: Adult bm8 21:36 Pain Scale: Adult bm8 23:14 Pain Scale: Adult bm8 03/27 00:03 Pain Scale: Adult bm8 01:07 Pain Scale: Adult bm8 01:57 Pain Scale: Adult bm8 04:10 Pain Scale: Adult bm8 [place] Coma Score: 03/26 20:34 Eye Response: spontaneous(4). Motor Response: obeys commands(6). Verbal Response: bm8 oriented(5). Total: 15. 21:36 Eye Response: spontaneous(4). Motor Response: obeys commands(6). Verbal Response: bm8 oriented(5). Total: 15. 23:14 Eye Response: spontaneous(4). Motor Response: obeys commands(6). Verbal Response: bm8 oriented(5). Total: 15. 03/27 00:03 Eye Response: spontaneous(4). Motor Response: obeys commands(6). Verbal Response: bm8 oriented(5). Total: 15. 01:07 Eye Response: spontaneous(4). Motor Response: obeys commands(6). Verbal Response: bm8 oriented(5). Total: 15. 01:57 Eye Response: spontaneous(4). Motor Response: obeys commands(6). Verbal Response: bm8 oriented(5). Total: 15. 04:10 Eye Response: spontaneous(4). Motor Response: obeys commands(6). Verbal Response: bm8 oriented(5). Total: 15. ED Course: 03/26 19:53 Patient arrived in ED. gm2 20:05 Moiz Traylor MD is Attending Physician. ec2 20:08 Triage completed. cm10 20:08 Arm band placed on Patient placed in an exam room, on a stretcher. EKG completed in cm10 triage. Results shown to MD. 20:08 EKG done, by ED staff, reviewed by Moiz Traylor MD. cm10 20:11 Bao Kraus, RN is Primary Nurse. bm8 20:34 Patient has correct armband on for positive identification. Placed in gown. Bed in low bm8 position. Call light in reach. Side rails up X2. Adult w/ patient. Client placed on continuous cardiac and pulse oximetry monitoring. NIBP monitoring applied. hospital monitor on. Pulse ox on. NIBP on. Sitter at bedside. Door closed. Noise minimized. Warm blanket given. Pillow given. Verbal reassurance given. Head of bed elevated. 20:39 XRAY Chest (1 view) In Process Unspecified. EDMS 20:43 No provider procedures requiring assistance completed. Inserted saline lock: 18 gauge bm8 in left forearm, using aseptic technique. Blood collected. Flushed with 10 mL NS. Patient maintains SpO2 saturation greater than 95% on room air. 22:35 Inserted saline lock: 18 gauge in right forearm, using aseptic technique. Flushed with bm8 10 mL NS. 22:42 CT Chest W/ Con In Process Unspecified. EDMS 03/27 00:00 EKG done, by ED staff, reviewed by Moiz Traylor MD. bm8 00:04 Provided Education on: need for admission. bm8 00:04 Patient admitted, IV remains in place. bm8 00:44 CT Abdomen - Angio In Process Unspecified. EDMS 00:44 CT Pelvis Angio In Process Unspecified. EDMS 01:57 EKG done, by ED staff, reviewed by Moiz Traylor MD. bm8 03:06 Maliha Mckeon MD is Hospitalizing Provider. ec2 Administered Medications: 03/26 20:34 Drug: morphine IVP or IV 4 mg IVP once over 4 mins Route: IVP; Infused Over: 4 mins; bm8 Site: left forearm; 21:38 Follow up: Response: No adverse reaction bm8 20:34 Drug: Ondansetron IVP 4 mg IVP once; over 2 minutes Route: IVP; Site: left forearm; bm8 21:38 Follow up: Response: No adverse reaction bm8 20:47 Drug: Diltiazem IVP 10 mg IVP once; Over 2 minutes Route: IVP; Site: left forearm; bm8 21:38 Follow up: Response: No adverse reaction bm8 22:25 Drug: Aspirin PO Chewable Tablet 324 mg PO once; 81 mg tablets x 4 Route: PO; jb4 23:55 Follow up: Response: No adverse reaction bm8 22:58 Drug: Heparin (MA Drip) 12 units/kg/[place] - ([place] [address] units, D5W IV 500 ml) IV at bm8 calculated rate Per protocol; Max initial rate 1000 units/hr {Co-Signature: seng (Venu To RN).} Route: IV; Rate: calculated rate; Site: left forearm; 03/27 04:12 Follow up: Response: No adverse reaction; IV Status: Infusion continued upon admission bm8 04:23 Follow up: ptt 35.5 medication increased 100 units /hr per heparin protocol bm8 03/26 23:11 Drug: Diltiazem IV 5 mg/hr IV at calculated rate See Administration Instructions; bm8 (standard dilution 125 mg diltiazem mixed in 125 mL NS; final concentration 1mg/mL). Recommended max rate 15 mg/hr; Titrate 5 mg/hr as often as every 15 minutes to acheive goal (see titration policy); Goal parameter HR less than 100 bpm Route: IV; Rate: calculated rate; Site: right forearm; 23:30 Follow up: titrated med up to 7.5mg, HR goal not reached bm8 23:46 Follow up: medication titrated up to 10 mg/hr, HR goal not reached bm8 23:52 Follow up: HR 140. tittated medication up to 12.5mg/hr. goal not reached bm8 03/27 02:00 Follow up: per MD orders diltiazem stopped. pt converted to sinus aydin bm8 02:01 Follow up: Response: Cardiac rhythm changed; IV Status: Order to discontinue infusion; bm8 IV Intake: 50ml 03/26 23:11 Drug: Diltiazem IVP 25 mg IVP once; Over 2 minutes Route: IVP; Site: right forearm; bm8 03/27 01:06 Follow up: Response: No adverse reaction bm8 01:06 Drug: NS 0.9% IV 1000 ml IV at 1 bolus Per protocol; 1000 mL bolus Route: IV; Rate: 1 bm8 bolus; Site: right forearm; 02:00 Follow up: IV Status: Completed infusion; IV Intake: 1000ml bm8 02:00 Follow up: Response: No adverse reaction bm8 Medication: 03/26 20:34 VIS not applicable for this client. bm8 Intake: 03/27 02:00 IV: 1000ml; Total: 1000ml. bm8 02:01 IV: 50ml; Total: 1050ml. bm8 Outcome: 03:06 Decision to Hospitalize by Provider. ec2 04:24 Admitted to ICU accompanied by nurse, accompanied by tech, via stretcher, room icu 4, bm8 with oxygen, with chart, Report called to icu 04:24 Condition: stable 04:24 Instructed on the need for admit, Demonstrated understanding of instructions, follow-up care, 04:50 Patient left the ED. Signatures: Dispatcher [facility] Lu Swan, DANIELLE RN Venu To, RN RN jb4 Rosenda Connelly RN RN cm10 Moiz Traylor MD MD ec2 Karyn Andujar gm2 Bao Kraus RN RN bm8 Venu To RN jb4
[2024-03-27] MEDS: CLOPIDOGREL 75 MG TABLET PO ONE (03:36)
[2024-03-27] MEDS ORDERED: ZOLPIDEM TARTRATE 5 MG TABLET PO PRN (03:36)
[2024-03-27] MEDS: ASPIRIN 325 MG TAB PO ONE (03:36)
[2024-03-27] MEDS ORDERED: NITROGLYCERIN 0.4 MG/TAB SL PRN (03:36)
[2024-03-27] MEDS ORDERED: MORPHINE 2 MG/ML SYR IV PRN (03:36)
[2024-03-27] MEDS ORDERED: ONDANSETRON 4 MG/2 ML VIAL IV PRN (03:36)
[2024-03-27] MEDS ORDERED: ALPRAZOLAM 0.25 MG TABLET PO PRN (03:36)
--- NOTE | 2024-03-27 03:36 | P.HP ---
Certification for Inpatient With expected LOS: >2 Midnights Patient will require the following post-hospital care: None Practitioner: I am a practitioner with admitting privileges, knowledge of patient current condition, hospital course, and medical plan of care. Services: Services provided to patient in accordance with Admission requirements found in Title 42 Section 412.3 of the Code of Federal Regulations Patient History Date of Service: 03/27/24 Reason for admission: Chest pain History of Present Illness: 73-year-old -[place] male with no past medical history who presented because of a left-sided chest pain extending from the anterior chest wall. Symptom onset is worse since yesterday. Symptoms associated with shortness of breath. Patient denies any palpitation or dizziness. Patient admits to chronic cough since the last 1 month. He states he occasionally produces whitish sputum. He denies any wheezing. He presented to the ED because of the worsen ing chest pain. Patient admits to tobacco use said he is trying to quit and smokes about half a pack every other day now. Patient and spouse insists he does not have any past medical history. Review of his old records shows he was evaluated for angina and started on metoprolol in 2013. Medication was subsequently DC'd after negative exercise stress test a month later. On arrival in the ED his initial set of vitals were stable with heart rate of 75 but heart rate subsequently worsening to 150 with atrial flutter. Patient received 2 doses of Cardizem with spontaneous conversion to bradycardia and then sinus rhythm. He has been started on heparin drip. Laboratory workup shows normal CBC, BMP was unremarkable except for creatinine of 1.35 no previous baseline to compare, troponin elevated at 2655, EKG shows normal sinus rhythm with no ST segment changes Chest x-ray showed possible mass. CT of the chest shows no evidence evidence of PE spiculated mass in the right apex. Also noted possible splenic infarct. CT of the abdomen and pelvicspending Allergies No Known Allergies Allergy (Verified 04/04/14 17:32) Home Medications: Aspirin Enteric Coated [Ecotrin*] 162 mg PO DAILY #30 tab 04/05/14 Ciprofloxacin HCl [Cipro 500 MG Tablet] 500 mg PO BID #20 tablet 04/05/14 Metoprolol Succinate [Toprol Xl*] 25 mg PO [id number] #30 tab 04/05/14 - Past Medical/Surgical History Diabetic: No Past Medical History: Patient denies medical history -: thumb surgery - Social History Smoking Status: Light Tobacco smoker (1-9 cigarettes/day) Counseled patient to stop smoking for: less than 10 minutes Smoking therapy provided: Yes Patient receptive to therapy: No Alcohol use: No CD- Drugs: Yes Caffeine use: No Place of Residence: Home Review of Systems Respiratory: Cough Cardiovascular: Chest Pain Physical Examination - Physical Exam General: Alert, In no apparent distress, Oriented x3, Cooperative HEENT: Atraumatic, Normocephalic, PERRLA Neck: Supple, 2+ carotid pulse no bruit, JVD not distended Respiratory: Clear to auscultation bilaterally, Normal air movement Cardiovascular: Normal pulses, Regular rate/rhythm, Normal S1 S2 Gastrointestinal: Normal bowel sounds, Soft and benign, Non-distended, No ascites, No tenderness Musculoskeletal: No clubbing, No swelling Integumentary: No breakdown, No significant lesion Neurological: Normal gait, Normal speech, Normal strength at 5/5 x4 extr, Sensation intact, Cranial nerves 3-12 intact - Studies Laboratory Data (last 24 hrs) 03/26/24 03/26/24 03/26/24 20:20 20:20 20:20 WBC 9.50 Hgb 13.6 Hct 40.0 Plt Count 258 PT 13.4 H INR 1.20 APTT 27.4 Sodium 140 Potassium 3.9 BUN 16 Creatinine 1.35 H Glucose 93 Assessment and Plan - Plan Impression Non-STEMI Atrial flutter with RVRresolved Right lung mass Acute kidney injury Splenic infarct Chronic tobacco use Plan Will admit patient to inpatient Non-STEMIcardiology consult in a.m. Continue heparin drip Start low-dose beta-ruby if heart rate above 70 since recent bradycardia with Cardizem doses Start statin/MEGAN/aspirin/Plavix Lipid panel in a.m. Obtain echocardiogram A-fib flutter with RVRresolved, placed on telemetry Follow-up for recurrent Obtain TSH as well as magnesium level Acute kidney injurymay be prerenal, follow with gentle IV fluids since contrast exposure Follow creatinine trend Acute splenic infarctCT of the abdomen showing splenic infarct as well as transient hepatic attenuation differences Jc Follow-up with anticoagulation General Surgery consulted Lung masswill consult pulmonary, may need bronch Chronic tobacco usecessation advised, nicotine patch as needed patient declining now DVT prophylaxison heparin Advance directivefull code - Advance Directives Does patient have a Living Will: No Does patient have a Durable POA for Healthcare: Yes
[2024-03-27] MEDS: ENOXAPARIN 60 MG/0.6 ML SQ SCH (04:00)
[2024-03-27 04:02] LABS: PT Prothrombin Time 14.8 SECONDS (9.4-12.5); PTT, Activated Partial Thromb 35.5 SECONDS (24.3-36.9); Protime INR 1.33
[2024-03-27 07:48] LABS: Absolute Eosinophils 0.2 K/uL (0-0.5); Absolute Lymphocytes (CBC) 1.6 K/uL (0.7-4.9); Absolute Monocytes 0.7 K/uL (0.1-1.3); Absolute Neutrophil 4.2 K/uL (1.8-8.0); Basophils % 0.7 % (0-1.3); Eosinophils % 3.3 % (0-4.4); Hematocrit 35.6 % (39.6-49.0); Hemoglobin 12.1 g/dL (13.6-17.9); Lymphocytes % 24.1 % (15.3-44.8); MCH 28.2 pg (27.0-35.0); MCHC 34.1 g/dL (32.0-36.0); MCV 82.8 fL (80-100); MPV 8.5 fL (7.6-11.3); Monocytes % 10.1 % (3.3-12.3); Neutrophils % 61.8 % (41.7-73.7); Platelets 249 thou/uL (152-406); Red Cell Distribution Width 15.3 % (12.1-15.2)
[2024-03-27 08:36] LABS: Albumin 3.3 g/dL (3.4-5.0); Anion Gap 8.7 mEq/L (5.0-15.0); Bilirubin Total 0.7 mg/dL (0.2-1.0); Globulin 3.3 g/dL (2.3-3.5); Magnesium 2.2 mg/dL (1.6-2.4); Potassium 3.7 mEq/L (3.5-5.1); Protein, Total 6.6 g/dL (6.4-8.2); Thyroid Stimulating Hormone 1.21 uIU/mL (0.358-3.740)
--- NOTE | 2024-03-27 09:03 | P.CNS ---
Date of Consult: 03/27/24 Chief Complaint: Chest pain History of Present Illness: Patient presented with chest pain, mid chest for the last two days associated with palpitations radiating to neck, denies any other symptoms. Allergies No Known Allergies Allergy (Verified 04/04/14 17:32) Home medications list reviewed: Yes Home Medications: Aspirin Enteric Coated [Ecotrin*] 162 mg PO DAILY #30 tab 04/05/14 Ciprofloxacin HCl [Cipro 500 MG Tablet] 500 mg PO BID #20 tablet 04/05/14 Metoprolol Succinate [Toprol Xl*] 25 mg PO [id number] #30 tab 04/05/14 - Past Medical/Surgical History Diabetic: No -: thumb surgery - Social History Smoking Status: Unknown if ever smoked Alcohol use: No CD- Drugs: Yes Caffeine use: No Place of Residence: Home Review of Systems 10-point ROS is otherwise unremarkable Physical Examination Temp Pulse Resp BP Pulse Ox 97.1 F 68 21 H 135/71 96 03/27/24 04:44 03/27/24 04:59 03/27/24 04:59 03/27/24 04:59 03/27/24 04:59 General: Alert, In no apparent distress HEENT: Atraumatic, PERRLA, Mucous membr. moist/pink, EOMI, Sclerae nonicteric Neck: Supple, 2+ carotid pulse no bruit, No LAD, Without JVD or thyroid abnormality Respiratory: Clear to auscultation bilaterally, Normal air movement Cardiovascular: Regular rate/rhythm, Normal S1 S2 Gastrointestinal: Normal bowel sounds, No tenderness Musculoskeletal: No tenderness Integumentary: No rashes Neurological: Normal gait, Normal speech, Normal tone, Normal affect Lymphatics: No axilla or inguinal lymphadenopathy Laboratory Data (last 24 hrs) 03/26/24 03/26/24 03/26/24 20:20 20:20 20:20 WBC 9.50 Hgb 13.6 Hct 40.0 Plt Count 258 PT 13.4 H INR 1.20 APTT 27.4 Sodium 140 Potassium 3.9 BUN 16 Creatinine 1.35 H Glucose 93 - Problems (1) NSTEMI (non-ST elevated myocardial infarction) Current Visit: Yes Status: Acute Plan: coronary angiogram ASA 81 mg daily Lipitor 40 mg daily Heparin drip ACS protocol. (2) Atrial flutter Current Visit: Yes Status: Acute Plan: currently in sinus rhythm, did not see the rhythm strip as it is not in chart continue metoprolol xl
[2024-03-27] MEDS: lisinopriL 10 MG TAB PO SCH (09:05)
[2024-03-27] MEDS: ASPIRIN EC 81 MG TAB PO SCH (09:06)
--- NOTE | 2024-03-27 09:29 | P.PN ---
Date of Service: 03/27/24 Pt seen and examined. Troponin is 2655. Cardiology will do cardiac cathtoday. Continue telemetry, metoprolol and heparin drip for A. fib. Continue home meds for other chronic medical problems.
[2024-03-27] MEDS: ARFORMOTEROL TARTRATE 15 MCG/2 ML VIAL.NEB NEB SCH (09:47)
[2024-03-27] MEDS ORDERED: HEPA 1000U/500MLS 2,000 UNIT/1,000 ML BAG IV ONE (10:41)
[2024-03-27] MEDS ORDERED: HEPARIN 10,000 UNIT/10 ML VIAL IV ONE (10:41)
[2024-03-27] MEDS ORDERED: MIDAZOLAM HCL 2 MG/2 ML INJ ONE (10:42)
[2024-03-27] MEDS ORDERED: ATROPINE SULF 1 MG/10 ML SYR IV ONE (10:42)
[2024-03-27] MEDS ORDERED: LIDOCAINE 1% 20 ML MDV ONE (10:42)
[2024-03-27] MEDS ORDERED: CLOPIDOGREL 75 MG TABLET ONE (10:42)
[2024-03-27] MEDS ORDERED: FENTANYL CITR 100 MCG/2 ML ONE (10:42)
[2024-03-27] MEDS ORDERED: ASPIRIN 325 MG TAB ONE (10:43)
[2024-03-27] MEDS ORDERED: TICAGRELOR 90 MG TABLET PO ONE (10:43)
[2024-03-27] MEDS ORDERED: HEPARIN 5000 UNIT/ML 1 ML VIAL ONE (10:43)
[2024-03-27] MEDS: NA CHLORIDE 0.9% 500 ML ONE (10:52)
--- NOTE | 2024-03-27 11:36 | P.CNS ---
Date of Consult: 03/27/24 Reason for Consult: Right upper lobe lung mass Chief Complaint: Chest pain History of Present Illness: Patient is 73 years of age admitted with 1 week history of retrosternal chest pain associated with some chest congestion was admitted with non-STEMI atrial flutter no prior history of pulmonary complaints although he does smoke 1 pack every 2 to 3 days no prior history of malignancy currently doing well hemodynamically stable Allergies No Known Allergies Allergy (Verified 04/04/14 17:32) Home Medications: Aspirin Enteric Coated [Ecotrin*] 162 mg PO DAILY #30 tab 04/05/14 Ciprofloxacin HCl [Cipro 500 MG Tablet] 500 mg PO BID #20 tablet 04/05/14 Metoprolol Succinate [Toprol Xl*] 25 mg PO [id number] #30 tab 04/05/14 - Past Medical/Surgical History Diabetic: No -: thumb surgery - Social History Smoking Status: Unknown if ever smoked Alcohol use: No CD- Drugs: Yes Caffeine use: No Place of Residence: Home Review of Systems 10-point ROS is otherwise unremarkable Physical Examination Temp Pulse Resp BP Pulse Ox 97.4 F 80 19 135/62 96 03/27/24 08:00 03/27/24 10:00 03/27/24 10:00 03/27/24 10:00 03/27/24 10:00 General: Alert, Oriented x3 Neck: Supple Respiratory: Expiratory wheezes Cardiovascular: No edema, Regular rate/rhythm, Normal S1 S2 Gastrointestinal: Soft and benign, Non-distended Musculoskeletal: No clubbing, No swelling Laboratory Data (last 24 hrs) 03/26/24 03/26/24 03/26/24 20:20 20:20 20:20 WBC 9.50 Hgb 13.6 Hct 40.0 Plt Count 258 PT 13.4 H INR 1.20 APTT 27.4 Sodium 140 Potassium 3.9 BUN 16 Creatinine 1.35 H Glucose 93 - Problems (1) Mass of right lung Current Visit: Yes Status: Acute Plan: Patient is 73 years of age admitted with weight loss of 10 pounds the past 2 to 3 months in addition he now has a new right upper lobe lung mass likely is malignant has a significant history of tobacco abuse he will need bronchoscopy as an outpatient (2) NSTEMI (non-ST elevated myocardial infarction) Current Visit: Yes Status: Acute Plan: Patient admitted with non-STEMI seen by dirt bike racer add beta-blockers patient is scheduled for a left heart cath (3) COPD (chronic obstructive pulmonary disease) Current Visit: Yes Status: Acute Plan: I suspect patient has underlying obstructive airways disease have added a bronchodilator prednisone Qualifiers: Emphysema type: unspecified
--- NOTE | 2024-03-27 13:43 | RAD REPORT ---
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 Coronal and sagittal MIP images were also performed. The CT study is performed according to ALARA (as low as reasonably achievable) or ALARA/IMAGE GENTLY, with automatic adjustment of mA and/or kV accor ding to patient size. Performed on: 03/27/2024 at 12:51 AM COMPARISON: CT chest performed on 03/26/2024 at 10:41 PM FINDINGS: CTA ABDOMEN AND PELVIS: Lung bases: The lung bases are grossly clear. There is minimal fibrosis and/or atelectasis in the jose angel g bases. There is a right lower lobe calcified granuloma. Occasional paraseptal and centrilobular emp hysematous changes are noted. Liver: Liver measures approximately 18 cm in craniocaudal dimension. There is a very small 9 mm nonsp ecific focal area of enhancement within the right hepatic lobe centrally and an additional 6 mm focal area of enhancement along the inferior medial aspect of the right hepatic lobe possibly representing transient hepatic attenuation differences (MARIA A). Liver attenuation is otherwise within normal limit s. The hepatic artery is patent. Spleen: Spleen is normal in size and configuration. Again demonstrated is a wedge-shaped area of decr eased attenuation along the anterior lateral pole of the spleen most consistent with a splenic infarc t. Other less likely etiologies include other hematological processes such as leukemia or myelofibros is. Gallbladder and bile duct: The gallbladder is well distended and unremarkable. There is no biliary ductal dilatation. Pancreas: The pancreas is grossly normal in size and configuration. There is borderline dilatation of the pancreatic duct. No definite pancreatic mass lesion is identified. Adrenal Glands: The adrenal glands are normal in size and configuration. Kidneys: The kidneys are normal in size and configuration. There is no evidence of hydronephrosis. Th ere is no evidence of nephrolithiasis. There are a few sharply marginated renal hypodense mass lesion s bilaterally consistent with simple renal cysts. The largest arises from the midpole of the left kid lisette and measures approximately 3.9 x 3.4 cm in cross-sectional diameter. Stomach: The stomach is grossly normal. There is no definite hiatal hernia. Bowel: The bowel gas pattern is non specific and non obstructive. There is occasional colonic diverti culosis. There is a thin-walled cystic mass along the serosal surface of the proximal ascending colon measuring approximately 2.4 x 1.7 cm in cross-sectional diameter by 3.3 cm in craniocaudal dimension . This is nonspecific and may represent an enteric duplication cyst or other benign process. Appendix: There is no CT evidence to suggest acute appendicitis. Free air: There is no evidence of free air. Free fluid: There is no evidence of free fluid. Vasculature: The aorta is normal in caliber and contour.There are minimal atherosclerotic calcificati ons along the distal abdominal aorta. The inferior vena cava is grossly unremarkable. See below for m ore detail. Lymphadenopathy: No pathologic lymphadenopathy is identified. Bladder: The bladder is well distended and smooth in contour. Reproductive: The prostate gland is grossly within normal limits. Bones: No acute osseous abnormalities are identified. There are degenerative changes of the facet thi nts throughout the lumbar spine most pronounced at L4-L5 and L5-S1. There is a 1 cm nonaggressive foc al area of sclerosis within the right iliac bone Soft tissues: No focal soft tissue abnormalities are identified. There is a very small ventral umbili poncho hernia which contains a knuckle of nondilated small bowel. Aorta: The aorta is normal in caliber and contour. Celiac Artery: The hepatic artery and splenic artery arise separately from the proximal abdominal aor ta and are patent and are normal in caliber and contour. SMA: The superior mesenteric artery is patent and is normal in caliber and contour. MIHAI: The inferior mesenteric artery is patent and is normal in caliber and contour. Renal Arteries: The renal arteries are patent and are normal in caliber and contour. Common Iliac Arteries: The common iliac arteries are patent and are normal in caliber and contour. Th ere are minimal atherosclerotic calcifications along the common iliac arteries bilaterally. External Iliac Arteries: The external iliac arteries are patent and are normal in caliber and contour . Common Femoral Arteries: The right common femoral artery is patent and is normal in caliber and conto ur. The left common femoral artery is patent and is normal in caliber and contour. IMPRESSION: 1. Again demonstrated is a wedge-shaped area of decreased attenuation along the anteri or lateral pole of the spleen most consistent with a splenic infarct. Other less likely etiologies in clude other hematological processes such as leukemia or myelofibrosis. 2. There are a few small nonspecific focal areas of enhancement within the right hepatic lobe possi clara representing transient hepatic attenuation differences (MARIA A). 3. Borderline dilatation of the pancreatic duct. No definite pancreatic mass lesion is identified. 4. Occasional colonic diverticulosis. 5. There is a thin-walled cystic mass along the serosal surface of the proximal ascending colon arlin suring approximately 2.4 x 1.7 x 3.3 cm. This is nonspecific and may represent an enteric duplication cyst or other benign process. 6. Very small ventral umbilical hernia which contains a knuckle of nondilated small bowel. 7. There are a few sharply marginated renal hypodense mass lesions consistent with simple renal cys ts. No routine follow-up imaging is recommended. 8. The hepatic artery and splenic artery arise separately from the proximal abdominal aorta. Otherw ise, normal CTA of the abdomen and pelvis. Electronically signed by: Alem Gonzalez DO 03/27/2024 02:55 AM CDT RP Due to temporary technical issues with the PACS/Fluency reporting system, reports are being signed by the in house radiologists without review as a courtesy to insure prompt reporting. The interpreting radiologist is fully responsible for the content of the report.
--- NOTE | 2024-03-27 16:53 | EKG ---
Test Date: 2024-03-27 Test Time: 01:53:53 Section Leader: CANDIS MEASUREMENT RESULTS: Intervals: Rate: 35 [place]: 186 QRSD: 92 QT: 478 QTc: 364 [place]: P: 69 WI: 186 QRS: -4 T: 41 INTERPRETIVE STATEMENTS: Marked sinus bradycardia Possible Left atrial enlargement Abnormal ECG Compared to ECG 03/26/2024 20:02:50 Atrial flutter no longer present Ventricular premature complex(es) no longer present ST (T wave) deviation no longer present Electronically Signed On 03-27-24 16:52:27 CDT by Bandar Holm
--- NOTE | 2024-03-27 16:54 | EKG ---
Test Date: 2024-03-26 Test Time: 23:59:57 Skating Rink Ice Maker: JESUS ALBERTO MEASUREMENT RESULTS: Intervals: Rate: 71 [place]: QRSD: 92 QT: 394 QTc: 428 [place]: P: 259 [place]: QRS: -24 T: 51 INTERPRETIVE STATEMENTS: Atrial flutter with 4:[address] abnormality Abnormal ECG Compared to ECG 03/26/2024 20:02:50 Ventricular premature complex(es) no longer present ST (T wave) deviation still present Electronically Signed On 03-27-24 16:52:32 CDT by Bandar Holm
--- NOTE | 2024-03-27 16:54 | EKG ---
Test Date: 2024-03-26 Test Time: 20:02:50 [employer] [address] [address]: SAS[employer] MEASUREMENT RESULTS: Intervals: Rate: 105 [place]: QRSD: 96 QT: 356 QTc: 470 [place]: P: 265 [place]: QRS: 5 T: 61 INTERPRETIVE STATEMENTS: Atrial flutter with variable AV block with premature ventricular or aberrantly conducted complexes Nonspecific ST abnormality Abnormal ECG Compared to ECG 08/17/2020 00:59:45 Ventricular premature complex(es) now present ST (T wave) deviation now present Sinus rhythm no longer present Atrial premature complex(es) no longer present Electronically Signed On 03-27-24 16:52:37 CDT by Bandar Holm
[2024-03-27] MEDS: METOPROLOL XL 25 MG TAB PO SCH (17:31)
--- NOTE | 2024-03-27 18:15 | OP ---
Date of Procedure: 03/27/2024 Surgeon: Vern Hendrix Procedures Performed: 1.Left heart catheterization. 2.Selective coronary angiogram. Indication For Procedures: [id number] VT. Access: Right radial, closed by TR band. Complications: None. Estimated Blood Loss: Less than 50 cc. Sedation Time: 20 minutes with 1 of Versed and 25 of fentanyl. Description Of Procedure: After risks, and benefits, and alternatives were explained to patient, pat ient agreed to proceed with procedure and signed informed consent. The patient was brought back to [facility] medical laboratory assistant, prepped and draped in a sterile fashion. Time-out was performed. Sedation was administ ered. Next, the right radial access was obtained. [place] 4.0 catheter was advanced over the J-wire t o the LV cavity. LVEDP was obtained. Pullback did not show any gradients. The same catheter was us ed for selective angiogram of the left and right coronary artery systems. At the end of the procedur e, catheter was removed over a J-wire. Sheath was removed. TR band was applied and hemostasis was a chieved and patient was moved back to recovery in stable condition. Findings: 1.Left main, normal. 2.LAD, mild luminal irregularities. 3.Left circ, mild luminal irregularities. 4.RCA, mild luminal irregularities. Assessment And Plan: Mild nonobstructive coronary artery disease. Plan will be to continue medical management. BINU/TO Voice ID: [id number] Report ID: [id number]
[2024-03-27] MEDS: ACETAMINOPHEN 500 MG TAB PO PRN (20:21)
[2024-03-27] MEDS: ATORVASTATIN 20 MG TAB PO SCH (20:22)
[2024-03-27] MEDS: predniSONE 20 MG TAB PO SCH (20:22)
[2024-03-28 05:43] VITALS: BMI 22.7
[2024-03-28 05:44] LABS: Absolute Lymphocytes (CBC) 0.7 K/uL (0.7-4.9); Absolute Monocytes 0.2 K/uL (0.1-1.3); Absolute Neutrophil 7.4 K/uL (1.8-8.0); Basophils % 0.1 % (0-1.3); Eosinophils % 0.1 % (0-4.4); Hematocrit 35.7 % (39.6-49.0); Hemoglobin 12.1 g/dL (13.6-17.9); Lymphocytes % 8.8 % (15.3-44.8); MCHC 33.8 g/dL (32.0-36.0); MPV 8.8 fL (7.6-11.3); Monocytes % 1.8 % (3.3-12.3); Neutrophils % 89.2 % (41.7-73.7); Nucleated Red Blood Cells % 0.1 % (0-0); Platelets 239 thou/uL (152-406)
[2024-03-28 06:02] LABS: Anion Gap 10.3 mEq/L (5.0-15.0); Potassium 4.3 mEq/L (3.5-5.1)
--- NOTE | 2024-03-28 06:52 | ECHO ---
HEIGHT: 5 ft 10 in WEIGHT: 158 lb 11.2 oz DATE OF STUDY: 03/27/[address]: Maliha Mckeon MD 2-DIMENSIONAL: YES M.MODE: YES DOPPLER: YES COLOR FLOW: YES TDS: PORTABLE: YES DEFINITY: BUBBLE STUDY: DIAGNOSIS: NON ST ELEVATION MYOCARDIAL INFARCTION/ ATRIAL FLUTTER CARDIAC HISTORY: CATHERIZATION: SURGERY: PROSTHETIC VALVE: PACEMAKER: MEASUREMENTS (cm) DIASTOLIC (NORMALS) SYSTOLIC (NORMALS) IVSd 1.1 (0.6-1.2) LA Diam 3.6 (1.9-4.0) LVEF 50% LVIDd 5.1 (3.5-5.7) LVIDs 3.9 (2.0-3.5) %FS 23% LVPWd 1.2 (0.6-1.2) Ao Diam 3.9 (2.0-3.7) 2 DIMENSIONAL ASSESSMENT: RIGHT ATRIUM: NORMAL LEFT ATRIUM: NORMAL RIGHT VENTRICLE: NORMAL LEFT VENTRICLE: NORMAL TRICUSPID VALVE: MILD TRICUSPID REGURGITATION MITRAL VALVE: MILD MITRAL REGURGITATION PULMONIC VALVE: NORMAL AORTIC VALVE: NORMAL PERICARDIAL EFFUSION: SMALL AORTIC ROOT: NORMAL LEFT VENTRICULAR WALL MOTION: ATRIAL FIBRILLTION (NORMAL) DOPPLER/COLOR FLOW: SEE BELOW COMMENTS: 1. NORMAL LEFT VENTRICULAR EJECTION FRACTION 50% 2. MILD TRICUSPID REGURGITATION 3. MILD MITRAL REGURGITATION 4. SMALL PERICARDIAL EFFUSION 5. DIASTOLIC DYSFUNCTION TECHNOLOGIST: EDDIE REN
[2024-03-28 09:47] LABS: Blood Morphology Comment NOT SEEN (NOT SEEN); Platelet Estimate ADEQ; White Blood Cell Scan OK (OK)
[2024-03-28 10:36] VITALS: O2SAT 96
--- NOTE | 2024-03-28 10:38 | P.DS ---
Admission Date: 03/27/24 Discharge Date: 03/28/24 Disposition: ROUTINE DISCHARGE Discharge Condition: GOOD Reason for Admission: Chest pain Brief History of Present Illness: 73-year-old -[place]osoth[place] male with no past medical history who presented because of a left-sided chest pain extending from the anterior chest wall. Symptom onset is worse since yesterday. Symptoms associated with shortness of breath. Patient denies any palpitation or dizziness. Patient admits to chronic cough since the last 1 month. He states he occasionally produces whitish sputum. He denies any wheezing. He presented to the ED because of the wo rsening chest pain. Patient admits to tobacco use said he is trying to quit and smokes about half a pack every other day now. Patient and spouse insists he does not have any past medical history. Review of his old records shows he was evaluated for angina and started on metoprolol in 2013. Medication was subsequently DC'd after negative exercise stress test a month later. On arrival in the ED his initial set of vitals were stable with heart rate of 75 but heart rate subsequently worsening to 150 with atrial flutter. Patient received 2 doses of Cardizem with spontaneous conversion to bradycardia and then sinus rhythm. He has been started on heparin drip. Laboratory workup shows normal CBC, BMP was unremarkable except for creatinine of 1.35 no previous baseline to compare, troponin elevated at 2655, EKG shows normal sinus rhythm with no ST segment changes Chest x-ray showed possible mass. CT of the chest shows no evidence evidence of PE spiculated mass in the right apex. Also noted possible splenic infarct. CT of the abdomen and pelvicspending Hospital Course: Pt is a 73yo male with no past medical history who presented with left-sided chest pain extending from the anterior chest wall for 1 day. It was associated with SOB. Pt also reported chronic cough for about 1 month. On admission, lab studies showed normal CBC and BMP except creatinine of 1.35 and troponin of 2655, EKG showed normal sinus rhythm with no ST segment changes. Chest x-ray showed possible mass. CT of the chest showed no evidence evidence of PE spiculated mass in the right apex, possible splenic infarct. CT of the abdomen and pelvics showed evidence of splenic infarct, a few small nonspecific focal areas of enhancement within the right hepatic lobe possibly representing transient hepatic attenuation differences (MARIA A). There was borderline dilatation of the pancreatic duct. No definite pancreatic mass lesion is identified, Occasional colonic diverticulosis, and a thin-walled cystic mass along the serosal surface of the proximal ascending colon measuring approximately 2.4 x 1.7 x 3.3 cm. This is nonspecific and may represent an enteric duplication cyst or other benign processpending. We admitted pt for NSTEMI and started Hearin drip. Cardiology did Cardiac cath which showed mild non-obstructive coronary artery disease. No stent was placed and Cardiolgy recommended medical management with metoprolol, aspirin and atorvastatin. We continued metoprolol for A. fib. Pulmonology advised pt to follow up in clinic for bronchoscopy. Pt was advised to quit smoking. We gave nicotine patch. Pt was in NAD prior to discharge. Vital Signs/Physical Exam: Temp Pulse Resp BP Pulse Ox 97.2 F 62 10 L 119/66 93 03/28/24 04:00 03/28/24 06:30 03/28/24 06:00 03/28/24 06:30 03/28/24 06:00 Laboratory Data at Discharge: WBC 8.30 thou/uL (4.3-10.9) 03/28/24 05:09 Hgb 12.1 g/dL (13.6-17.9) L 03/28/24 05:09 Hct 35.7 % (39.6-49.0) L 03/28/24 05:09 Plt Count 239 thou/uL (152-406) 03/28/24 05:09 PT 14.8 SECONDS (9.4-12.5) H 03/27/24 03:37 INR 1.33 03/27/24 03:37 APTT 44.9 SECONDS (24.3-36.9) H 03/27/24 09:52 Sodium 136 mEq/L (136-145) 03/28/24 05:09 Potassium 4.3 mEq/L (3.5-5.1) D 03/28/24 05:09 BUN 15 mg/dL (7-18) 03/28/24 05:09 Creatinine 1.10 mg/dL (0.70-1.30) 03/28/24 05:09 Glucose 123 mg/dL (74-106) H 03/28/24 05:09 Magnesium 2.2 mg/dL (1.6-2.4) 03/27/24 07:30 Magnesium Cancelled 03/27/24 07:30 Total Bilirubin 0.7 mg/dL (0.2-1.0) 03/27/24 07:30 AST 22 U/L (15-37) 03/27/24 07:30 ALT 20 U/L (16-61) 03/27/24 07:30 Alkaline Phosphatase 157 U/L (45-117) H 03/27/24 07:30 Triglycerides 67 mg/dL (<150) 03/28/24 05:09 Cholesterol 125 mg/dL (<200) 03/28/24 05:09 HDL Cholesterol 47 mg/dL (40-60) 03/28/24 05:09 Cholesterol/HDL Ratio 2.66 03/28/24 05:09 Home Medications: Albuterol Inhaler [Ventolin Inhaler*] 2 puff IH Q6H PRN 30 Days #2 ea 03/28/24 Amlodipine [Norvasc*] 5 mg PO DAILY 03/28/24 Aspirin [Aspirin EC 81 MG] 81 mg PO DAILY 90 Days #90 tab 03/28/24 Atorvastatin Calcium [Lipitor] 40 mg PO BEDTIME 03/28/24 Dapagliflozin Propanediol [Farxiga] 5 mg PO DAILY 03/28/24 Metoprolol Succinate [Toprol Xl*] 100 mg PO [id number] 03/28/24 Telmisartan 40 mg PO BID 03/28/24 New Medications: Aspirin [Aspirin EC 81 MG] 81 mg PO DAILY 90 Days #90 tab Albuterol Inhaler [Ventolin Inhaler*] 2 puff IH Q6H PRN 30 Days #2 ea PRN Reason: Shortness Of Breath Physician Discharge Instructions: Continue ad ame activity as tolerated. Take home meds as prescribed. Follow up with Dr. Benítez in Clinic within 1 - 2 weeks for bronchoscopy of the lung mass. Diet: AHA Activity: Ad ame [facility] [Primary Care Provider] -
[2024-03-28 10:40] VITALS: BP 107/92; TEMP 97.6
--- NOTE | 2024-03-28 11:40 | P.PN ---
Subjective Date of Service: 03/28/24 Chief Complaint: Right upper lobe lung mass Subjective: Improving (Patient is improving chest pain congestion have both improved) Review of Systems Respiratory: Cough, Shortness of Breath Physical Examination - Vital Signs Temperature: 97.6 F Blood Pressure: 107/92 Pulse: 68 Respirations: 17 Pulse Ox (%): 96 - Physical Exam General: Alert, Oriented x3 Respiratory: Clear to auscultation bilaterally Cardiovascular: No edema, Regular rate/rhythm, Normal S1 S2 Assessment And Plan - Current Problems (Diagnosis) (1) Mass of right lung Current Visit: Yes Status: Acute Plan: Patient has a mass in the right upper lobe plan to follow-up as an outpatient and scheduled for outpatient bronchoscopy interventional radiology refused to do an FNA as patient is on aspirin (2) NSTEMI (non-ST elevated myocardial infarction) Current Visit: Yes Status: Acute Plan: Patient admitted with non-STEMI evidence of significant coronary artery disease by cardiac cath (3) COPD (chronic obstructive pulmonary disease) Current Visit: Yes Status: Acute Plan: Patient is doing better discharge on home bronchodilator to quit smoking have sent in a prescription in for Trelegy Qualifiers: Emphysema type: unspecified
--- NOTE | 2024-03-28 11:48 | RAD REPORT ---
EXAM DESCRIPTION: CT - Thorax W/ Con - 03/27/2024 6:25 am CLINICAL HISTORY: Mass TECHNIQUE: Contiguous axial images obtained through the chest following the uneventful administratio n of IV contrast. Coronal and sagittal reformatted images provided. This exam was performed according to our departmental dose-optimization program, which includes autom ated exposure control, adjustment of the mA and/or kV according to patient size and/or use of iterati ve reconstruction technique. COMPARISON: No prior exams provided for comparison. FINDINGS: Lungs: Large spiculated lesion in the right lung apex measuring approximately 4.8 cm in di ameter, consistent with malignancy. Emphysematous changes in the lungs bilaterally with apical bulla. Pleura: No effusion. No pneumothorax. Heart and pericardium: The heart is normal in size. Trace pericardial effusion. Mediastinum and migdalia: N right hilar and mediastinal nodes, which may reflect metastatic involvement. Lower neck and chest wall: Unremarkable Vessels: Unremarkable Upper abdomen: Nonobstructive calcification in the right kidney. Incidentally noted right renal cyst for which no follow-up imaging is recommended. Wedge-shaped hypodensity in the spleen anteriorly most suggestive of splenic infarct. Bones: Unremarkable IMPRESSION: 1. Large spiculated lesion in the right lung apex measuring approximately 4.8 cm in di ameter, consistent with malignancy. 2. Right hilar and mediastinal nodes, which may reflect metastatic involvement. 3. Wedge-shaped hypodensity in the spleen anteriorly most suggestive of splenic infarct. Electronically signed by: Jakob Mena MD 03/27/2024 12:03 AM CDT RP Due to temporary technical issues with the PACS/Fluency reporting system, reports are being signed by the in house radiologist without review as a courtesy to ensure prompt reporting. The interpreting r adiologist is fully responsible for the content of the report.
--- NOTE | 2024-03-29 16:30 | EKG ---
Test Date: 2024-03-27 Test Time: 09:06:00 Shopfitter: HILLARY MEASUREMENT RESULTS: Intervals: Rate: 65 [place]: 186 QRSD: 92 QT: 420 QTc: 436 [place]: P: 61 [place]: 186 QRS: -7 T: 39 INTERPRETIVE STATEMENTS: Sinus rhythm with premature atrial complexes Otherwise normal ECG Compared to ECG 03/27/2024 01:53:53 Atrial premature complex(es) now present Sinus bradycardia no longer present Electronically Signed On 03-29-24 16:23:59 CDT by Vern Hendrix
== END 2024-03-28 11:35 | disposition home or self-care (01) | DRG 281 ==
LOC: ER 19:52 → 3RD-ICU 03-27 03:36
PROVIDERS: ADMIT Internal Medicine; ATTEND Hospitalist
PROC: 4A023N7 Measurement of Cardiac Sampling and Pressure, Left Heart, Percutaneous Approach (ICD-10-PCS; principal; 2024-03-27)
PROC: B2111ZZ Fluoroscopy of Multiple Coronary Arteries using Low Osmolar Contrast (ICD-10-PCS; 2024-03-27)
DX: I21.4 Non-ST elevation (NSTEMI) myocardial infarction (principal); I48.92 Unspecified atrial flutter; N17.9 Acute kidney failure, unspecified; D73.5 Infarction of spleen; K86.89 Other specified diseases of pancreas; J44.9 Chronic obstructive pulmonary disease, unspecified; I25.10 Atherosclerotic heart disease of native coronary artery without angina pectoris; K57.30 Diverticulosis of large intestine without perforation or abscess without bleeding; F17.210 Nicotine dependence, cigarettes, uncomplicated; R91.8 Other nonspecific abnormal finding of lung field; R59.1 Generalized enlarged lymph nodes; Z79.82 Long term (current) use of aspirin; Z79.01 Long term (current) use of anticoagulants; Z79.899 Other long term (current) drug therapy
CPT/HCPCS: 36415; 71045; 71260; 72191; 74175; 76937; 80048; 80053; 80061; 83735; 83880; 84443; 84484; 85025; 85610; 85730; 93005; 93306; 93458; 94640; 94760; 99152; 99153; 99285; C1893; J0461; J1644; J2001; J2250; J2405; J3010; J7030; J7040; J7512; J7605; Q9966; Q9967